=== PATIENT | female | born 1970 | race Two or more races ===

== ENCOUNTER → 2024-09-11 | Outpatient (CLI) | payer MEDICAID, SELFPAY ==
--- NOTE | 2024-09-11 16:01 | XR_ITS ---
Examination: Lumbar spine, 5 views Technique: Lumbar spine AP, lateral, coned lateral lower lumbar spine, bilateral obliques 5 views Exam date and time: September 11, 2024 1606 hours Comparison 01 05 2022 INDICATIONS: Low back pain radiating down both legs beginning 6 months ago. FINDINGS: Minimal grade 1 anterolisthesis L4 on L5 No lumbar fracture Mild disc narrowing L4-L5, L5-S1 No spondylolisthesis. Intact pedicles IMPRESSION: Mild disc narrowing L4-L5, L5-S1
== END | disposition home or self-care (01) ==
PROVIDERS: PCP Nurse Practitioner Family; Referring Provider Nurse Practitioner Family; Visit Provider Nurse Practitioner Family
DX: M48.061 Spinal stenosis, lumbar region without neurogenic claudication (principal); M48.07 Spinal stenosis, lumbosacral region; M54.41 Lumbago with sciatica, right side; M54.42 Lumbago with sciatica, left side
CPT/HCPCS: 72110